=== PATIENT | male | born 1945 | race Two or more races ===

== ENCOUNTER 2018-04-12 11:01 | Emergency (ER) | payer SELFPAY ==
[~2018-04-12] VITALS: Ht 172.7 cm; Wt 93.9 kg
[2018-04-12 11:12] VITALS: Ht 172.7 cm; Wt 93.9 kg
[2018-04-12 11:38] LABS: BASOPHIL % 0.6 % (0-2); PLATELET COUNT 164 x10^3mcL (130-400); RED CELL DISTRIBUTION WIDTH 14.3 % (11.5-14.5)
[2018-04-12 11:50] LABS: CALCIUM 8.9 mg/dL (8.5-10.1); CARBON DIOXIDE 34.9 mmol/L (21-32); CHLORIDE SERUM 101 mmol/L (98-107); GFR1 > 60 mL/min; GLUCOSE SERUM 107 mg/dL (74-106); POTASSIUM SERUM 3.1 mmol/L (3.5-5.1); SODIUM SERUM 141 mmol/L (136-145)
[2018-04-12 11:52] LABS: ALBUMIN 3.4 g/dL (3.4-5.0); ALKALINE PHOSPHATASE 122 U/L (46-116); ALT/SGPT 7 U/L (16-63); AST/SGOT 10 U/L (15-37); BILIRUBIN TOTAL 0.39 mg/dL (0.20-1.00); LIPASE 215 IU/L (73-393); TOTAL PROTEIN, SERUM 7.4 g/dL (6.4-8.2)
[2018-04-12 13:24] LABS: MAGNESIUM 2.2 mg/dL (1.8-2.4); PHOSPHOROUS 3.9 mg/dL (2.5-4.9)
[2018-04-12 13:33] LABS: FREE T4 0.84 ng/dL (0.76-1.46); T4(THYROXINE) 9.1 ug/dL (4.7-13.3)
[2018-04-12 14:02] LABS: T3 TOTAL 1.23 ng/mL
[2018-04-12 14:38] VITALS: BP 151/102
== END 2018-04-12 14:38 | disposition left against medical advice (07) ==
LOC: ED 11:01 → DU 12:37 → ED 12:37
PROVIDERS: Emergency Medicine; Internal Medicine
PROC: 3E033GC Introduction of Other Therapeutic Substance into Peripheral Vein, Percutaneous Approach (ICD-10-PCS; principal; 2018-04-12)
PROC: BW40ZZZ Ultrasonography of Abdomen (ICD-10-PCS; 2018-04-12)
DX: R10.10 Upper abdominal pain, unspecified (principal); E87.6 Hypokalemia; I10 Essential (primary) hypertension; F17.210 Nicotine dependence, cigarettes, uncomplicated
CPT/HCPCS: 83880; 84439; J2405; J3010; J3480; J7030; Q0092